=== PATIENT | female | born 1990 | race Caucasian/White ===

== ENCOUNTER 2017-04-18 17:19 | Emergency (ER) | payer OTHER ==
[~2017-04-18] VITALS: Ht 177.8 cm; Wt 113.0 kg
[2017-04-18 17:19] VITALS: BP 121/76
[2017-04-18] MEDS ORDERED: DELTASONE20 MG PO (17:41)
[2017-04-18] MEDS ORDERED: PEPCID20 MG PO (17:41)
[2017-04-18] MEDS ORDERED: BENADRYL25 MG PO (17:41)
== END 2017-04-18 17:56 | disposition home or self-care (01) ==
LOC: ER 17:19
DX: L23.9 Allergic contact dermatitis, unspecified cause (principal); F17.210 Nicotine dependence, cigarettes, uncomplicated; F10.99 Alcohol use, unspecified with unspecified alcohol-induced disorder